=== PATIENT | male | born 1995 | race Caucasian/White ===

== ENCOUNTER 2024-05-03 10:23 | Emergency (ER) | payer BC ==
[2024-05-03] MEDS: Lidocaine 1% 5 ML VIAL INJECT ONE (11:10)
[2024-05-03] MEDS: cefTRIAXone 1 GM Vial IM ONE (11:10)
[2024-05-03] MEDS: Diphtheria,Pertussis(Acell),Tetanus Vaccine 0.5 ML Syringe IM ONE (11:12)
[2024-05-03] MEDS: Lidocaine 1% 5 ML VIAL ONE (12:24)
== END 2024-05-03 11:22 | disposition home or self-care (01) ==
LOC: KA.ED 10:23
DX: S66.321A Laceration of extensor muscle, fascia and tendon of left index finger at wrist and hand level, initial encounter (principal); Z23 Encounter for immunization; W26.8XXA Contact with other sharp object(s), not elsewhere classified, initial encounter
CPT/HCPCS: 90471; 90715; 96372; 99282-25; 99283; J0696; J3490